=== PATIENT | female | born 1960 | race Two or more races ===

== ENCOUNTER 2025-05-15 20:36 | Emergency (ER) | payer MEDICARE, OTHER ==
[~2025-05-15] VITALS: Ht 170.2 cm; Wt 77.0 kg
[2025-05-15] MEDS ORDERED: GENT0.1O5 TOP (22:58)
[2025-05-15] MEDS: GENTAMICIN SULF 0.3% OPTH(EYE) OINT 3.5GM LEFTEYE ONE (23:03)
--- NOTE | 2025-05-15 23:03 | ED.PDOC ---
Eye-HPI HPI Comments 65-year-old female complains of severe burning left eye pain after she put some finger nail adhesive drops in her left eye about an hour ago. Chief Complaint: Eye Problem Time Seen by MD: 21:30 Allergies: Coded Allergies: NO KNOWN ALLERGIES (Unverified , 05/15/25) Home Meds Active Scripts Gentamicin Sulfate (Gentamicin Sulfate) 0.1 % Oin, 1 APPLIC TOP BID for 5 Days, #15 GRAMS 3 Refills Prov:MIGUEL FUCHS MD 05/15/25 Mode of Arrival: Ambulatory Timing: Hours Duration: Since onset Past Medical History PAST MEDICAL HISTORY: Denies Social History Smoker: Non-Smoker Alcohol: Denies ETOH Use Drugs: Denies Drug Use Constitutional: reports: malaise EENTM: reports: others (Left eye pain and redness) All Other Systems: Reviewed and Negative Physical Exam General Appearance: Moderate Distress HEENT: Other (Left lower conjunctiva irritated and injected with erythema. Cornea is clear) Neck: Full Range of Motion, Non-Tender, Normal, Normal Inspection Respiratory: Chest Non-Tender, Lungs Clear, No Accessory Muscle Use, No Respiratory Distress, Normal Breath Sounds Cardiovascular: No Edema, No JVD, No Murmur, No Gallop, Normal Peripheral Pulses, Regular Rate/Rhythm Breast Exam: Deferred Gastrointestinal: No Organomegaly, Non Tender, No Pulsatile Mass, Normal Bowel Sounds, Soft Genitalia: Deferred Pelvic: Deferred Rectal: Deferred Extremities: No calf tenderness, Normal capillary refill, Normal inspection, Normal range of motion, Non-tender, No pedal edema Musculoskeletal : Apperance: Normal Neurologic: Alert, accounts receivable assistant II-XII nml as Tested, No Motor Deficits, Normal Affect, Normal Mood, No Sensory Deficits Cerebellar Function: Normal Reflexes: Normal Skin: Dry, Normal Color, Warm Lymphatic: No Adenopathy Was a procedure done? Was a procedure done?: No EENT DIFF Eye: Chalazion, Conjunctivitis, Allergic, Bacterial, Chlamydial, Viral, Corneal Abrasion, Corneal Lacerations, Corneal Ulceration, Foreign Body-Conjunctiva, Foreign Body-Corneal, Foreign Body-Intraocular, Foreign Body-Lid, Glaucoma, Globe Rupture, Hordeolum (stye), Iritis/Uveitis, Orbital Cellulits, Rust Ring, Other X-Ray, Labs, Meds, VS Vital Signs Date Time Temp Pulse Resp B/P (MAP) Pulse Ox O2 Delivery O2 Flow Rate FiO2 05/15/25 20:39 97.6 68 18 133/71 96 97.6 Time of 1ST Reevaluation: 22:00 Reevaluation 1ST: Unchanged Patient Education/Counseling: Diagnosis, Treatment Family Education/Counseling: Diagnosis, Treatment SEPSIS Sepsis Screen Date sepsis recognized/suspect: May 15, 2025 Time Sepsis recognized/suspect: 2041 Recent Procedure: No On Antibiotic Therapy: No Respiratory Rate >20: No Heart Rate >90: No Temp<36 C (96.8 F) or >38.3 C: No SBP <90 or MAP <65 mmHG: No New Acute Mental Status Change: No Is the patient on CPAP, BIPAP,: No Physician Orders Tetracaine 0.5% Opth Soln (Tetracaine 0. (05/15/25 23:00) Gentamicin 0.3% Opthalmic Oint (Garamyci (05/15/25 23:00) Vital Signs Date Time Temp Pulse Resp B/P (MAP) Pulse Ox O2 Delivery O2 Flow Rate FiO2 05/15/25 20:39 97.6 68 18 133/71 96 97.6 Departure 1 Departure Time of Disposition: 23:02 Impression: Primary Impression: Chemical injury of left eye Additional Impression: Chemical conjunctivitis of left eye Disposition: 01 HOME / SELF CARE / HOMELESS Condition: Stable Additional Instructions: Follow up with your primary physician and Ophthalmology Return to the ED for any worsening symptoms or concerns e-Prescriptions Gentamicin Sulfate (Gentamicin Sulfate) 0.1 % Oin 1 APPLIC TOP BID for 5 Days, #15 GRAMS 3 Refills Prov: MIGUEL FUCHS MD 05/15/25 Discharged With: Self Critical Care Note Critical Care Time?: No Stability Stability form required: No Heart Score Heart Score: Heart Score Response (Comments) Value History N/A 0 EKG N/A 0 Age N/A 0 Risk Factors N/A 0 Troponin N/A 0 Total 0 MIGUEL FUCHS MD May 15, 2025 23:03
[2025-05-15] MEDS: TETRACAINE HCL 0.5% OPTH(EYE) SOLN 4ML LEFTEYE ONE (23:04)
[2025-05-15 23:11] VITALS: BP 145/89; PULSE 58; RESP 18; TEMP 98.1; O2SAT 95
== END 2025-05-15 23:20 | disposition home or self-care (01) ==
LOC: ER 20:36
DX: S05.92XA Unspecified injury of left eye and orbit, initial encounter (principal); X58.XXXA Exposure to other specified factors, initial encounter; Y93.89 Activity, other specified; Y92.89 Other specified places as the place of occurrence of the external cause; Y99.8 Other external cause status